=== PATIENT | male | born 1990 | race Hispanic/Latino ===

== ENCOUNTER 2016-07-11 19:56 | Emergency (ER) | payer SELFPAY ==
[2016-07-11 20:05] VITALS: BP 146/80; PULSE 109; RESP 16; TEMP 97.4; O2SAT 100
--- NOTE | 2016-07-11 20:44 | ED PDOC ---
HPI: Psych/Substance Abuse Time Seen by Provider: 07/11/16 20:08 Chief Complaint (Nursing): Anxiety Chief Complaint (Provider): anxiety Additional Complaint(s): 1yo M in ED states that he was drinking last night and felt he had a hangover- now states he develop an acute panic attack-which he states he get when he drinks too much. while in ER anxiety subsided. (-) N/V/dizziness/change in BM, CP/SOB. Past Medical History Reviewed: Historical Data, Nursing Documentation, Vital Signs Vital Signs: Last Vital Signs Temp 97.4 F L 07/11/16 20:00 Pulse 109 H 07/11/16 20:00 Resp 16 07/11/16 20:00 BP 146/80 07/11/16 20:00 Pulse Ox 100 07/11/16 20:00 - Family History Family History: States: No Known Family Hx - Social History Alcohol: Social - Home Medications Home Medications: Ambulatory Orders Medication Instructions Recorded Ondansetron [Zofran] 4 mg PO Q8H #12 tab 07/11/16 - Allergies Allergies/Adverse Reactions: Allergies Allergy/AdvReac Type Severity Reaction Status Date / Time No Known Allergies Allergy Verified 07/11/16 20:00 Review of Systems ROS Statement: Except As Marked, All Systems Reviewed And Found Negative Constitutional: Negative for: Fever, Chills, Weakness, Malaise Physical Exam - Reviewed Nursing Documentation Reviewed: Yes Vital Signs Reviewed: Yes - Physical Exam Appears: Positive for: Well, Non-toxic, No Acute Distress Head Exam: Positive for: ATRAUMATIC, NORMAL INSPECTION, NORMOCEPHALIC Skin: Positive for: Normal Color, Warm, DRY Cardiovascular/Chest: Positive for: Regular Rate, Rhythm Respiratory: Positive for: CNT, Normal Breath Sounds Neurologic/Psych: Positive for: Alert, cobol application developer II-XII (intact), Oriented, Other ((- ) tremor, ataxia) - ECG O2 Sat by Pulse Oximetry: 100 Medical Decision Making Medical Decision Making: pt was offered IV hydration in ED and Medication in Ed, however since he states he felt better opted to leave with Rx of zofran incase he has nausea and will f.u with pmd. pt is medically stable for d/c w/o medical intervention at this time. Disposition - Clinical Impression Clinical Impression: Anxiety attack, Hangover - Patient ED Disposition Is Patient to be Admitted: No Counseled Patient/Family Regarding: Diagnosis, Need For Followup, Rx Given - Disposition Disposition: Routine/Home Disposition Time: 20:53 Condition: IMPROVED Prescriptions: Ondansetron [Zofran] 4 mg PO Q8H #12 tab Instructions: Anxiety (ED)
== END 2016-07-11 20:40 | disposition home or self-care (01) ==
LOC: H.ER 19:56
DX: F41.1 Generalized anxiety disorder (principal); F10.129 Alcohol abuse with intoxication, unspecified